=== PATIENT | female | born 1950 | race Caucasian/White ===

== ENCOUNTER → 2016-07-17 | Outpatient (CLI) | payer OTHER, MEDICARE ==
[~2016-07-17] MED LIST: COQ(10)1010 MG PO; COSAMIN DS PO; DESYREL 50MG50 MG PO; LOVAZA1 GM PO; MIRALAX PA17 GM/Dose PO; PREVACID 15MG15 M1 PO; RESTASIS0.05% OP; STOOL SOFTENER100 M2 PO; VITAMIN C500 MG PO; VITAMIN D 400400 IU PO; VOLTAREN GEL 1%1 TU TP
== END ==
LOC: MC.RAD 07-04 11:20
DX: Z12.31 Encounter for screening mammogram for malignant neoplasm of breast (principal)

== ENCOUNTER → 2016-11-06 | Outpatient (CLI) | payer OTHER, MEDICARE | LOC: COL.LAB 11:12 | DX: Z96.642 Presence of left artificial hip joint (principal) ==

== ENCOUNTER → 2017-01-01 | Outpatient (CLI) | payer OTHER, MEDICARE | LOC: ZCOL.LAB 09:41 | DX: T81.89XA Other complications of procedures, not elsewhere classified, initial encounter (principal); Z96.642 Presence of left artificial hip joint ==

== ENCOUNTER → 2017-06-21 | Outpatient (CLI) | payer OTHER, MEDICARE | LOC: COL.RAD 12:11 | DX: G93.0 Cerebral cysts (principal) | CPT/HCPCS: A9585 ==

== ENCOUNTER → 2017-10-11 | Outpatient (CLI) | payer OTHER, MEDICARE | LOC: MC.RAD 11:00 | DX: Z12.31 Encounter for screening mammogram for malignant neoplasm of breast (principal) ==

== ENCOUNTER → 2018-10-24 | Outpatient (CLI) | payer OTHER, MEDICARE | LOC: MC.RAD 11:30 | DX: Z12.31 Encounter for screening mammogram for malignant neoplasm of breast (principal) ==

== ENCOUNTER → 2019-12-01 | Outpatient (CLI) | payer OTHER, MEDICARE | LOC: MC.RAD 11-20 18:30 | DX: Z12.31 Encounter for screening mammogram for malignant neoplasm of breast (principal) ==

== ENCOUNTER 2020-11-29 13:08 | Outpatient (RCR) | payer OTHER, MEDICARE | END 2021-02-27 | disposition home or self-care (01) | LOC: WSST | DX: R49.0 Dysphonia (principal); J38.7 Other diseases of larynx ==

== ENCOUNTER → 2020-12-02 | Outpatient (CLI) | payer OTHER, MEDICARE | LOC: MC.RAD 11:27 | DX: Z12.31 Encounter for screening mammogram for malignant neoplasm of breast (principal) ==

== ENCOUNTER 2021-05-04 14:45 | Outpatient (RCR) | payer OTHER, MEDICARE | END 2021-05-31 | disposition home or self-care (01) | LOC: WSST | DX: R49.0 Dysphonia (principal) ==

== ENCOUNTER → 2021-06-22 | Outpatient (CLI) | payer OTHER, MEDICARE | LOC: COL.RAD 06-14 13:15 | DX: M47.812 Spondylosis without myelopathy or radiculopathy, cervical region (principal); M50.20 Other cervical disc displacement, unspecified cervical region ==

== ENCOUNTER → 2022-01-10 | Outpatient (CLI) | payer OTHER, MEDICARE | LOC: MC.RAD 12-08 11:30 | DX: Z12.31 Encounter for screening mammogram for malignant neoplasm of breast (principal) ==